=== PATIENT | female | born 1990 | race American Indian/Alaskan Native ===

== ENCOUNTER 2020-12-04 16:47 | Emergency (ER) | payer BC ==
[2020-12-04 17:07] VITALS: BP 123/85
--- NOTE | 2020-12-04 17:47 | Emergency Department Report ---
ED Medical Clearance HPI - General Chief complaint: Medical Clearance Stated complaint: SEEKING PRESCRIPTION FOR PAROXETINE Time Seen by Provider: 12/04/20 17:43 Source: patient Mode of arrival: Ambulatory - History of Present Illness Initial comments: 30-year-old -[place] female presents to the emergency room reporting she has been out of her paroxetine 12.5 mg for 2 days. Patient states that she takes it for premenstrual syndrome. She reports she tried to get in touch with her psychiatrist they will not refill it did not have any appointments available. Therefore patient decided to come here to get a refill. Patient states that she has a new primary care provider that she is going to have managed her medication appointment is December 27, 2020. Patient reports that she does get a little anxious when she does not have the medication. She denies any headache shortness of breath chest pain any diarrhea. Onset/Timin -: days(s) Home medications: Previous Rx's Medication Instructions Recorded Last Taken Type Paroxetine HCl [Paroxetine ER] 12.5 mg PO QDAY #30 tab.er.24h 12/04/20 Unknown Rx Allergies/Adverse reactions: Allergies Allergy/AdvReac Type Severity Reaction Status Date / Time No Known Allergies Allergy Unverified 12/04/20 17:07 ED Review of Systems ROS: Stated complaint: SEEKING PRESCRIPTION FOR PAROXETINE Other details as noted in HPI Comment: All other systems reviewed and negative ED Past Medical Hx - Past Medical History Previous Medical History?: Yes Additional medical history: Premenstrual disorder - Surgical History Past Surgical History?: No - Medications Home Medications: Home Medications Medication Instructions Recorded Confirmed Last Taken Type Paroxetine HCl [Paroxetine ER] 12.5 mg PO QDAY #30 tab.er.24h 12/04/20 Unknown Rx ED Physical Exam - General Limitations: No Limitations General appearance: alert, in no apparent distress - Head Head exam: Present: atraumatic, normocephalic - Eye Eye exam: Present: normal appearance - Respiratory Respiratory exam: Absent: accessory muscle use - Cardiovascular Cardiovascular Exam: Present: regular rate - Back Exam Back exam: Present: normal inspection, full ROM - Neurological Exam Neurological exam: Present: alert, oriented X3, normal gait - Psychiatric Psychiatric exam: Present: normal affect, normal mood - Skin Skin exam: Present: warm, dry, intact, normal color. Absent: rash ED Course Vital Signs 12/04/20 17:04 Temperature 99.6 F Pulse Rate 93 H Respiratory 18 Rate Blood Pressure 123/85 O2 Sat by Pulse 100 Oximetry ED Medical Decision Making - Medical Decision Making 30-year-old -[place] female presents to the emergency room reporting she has been out of her paroxetine 12.5 mg for 2 days. Patient states that she takes it for premenstrual syndrome. She reports she tried to get in touch with her psychiatrist they will not refill it did not have any appointments available. Therefore patient decided to come here to get a refill. Patient states that she has a new primary care provider that she is going to have managed her medication appointment is December 27, 2020. Patient reports that she does get a little anxious when she does not have the medication. She denies any headache shortness of breath chest pain any diarrhea. Patient denies any suicidal homicidal ideation. Patient has a stable mood. We will refill her paroxetine 12.5 mg for 30 days. I instructed patient to keep her appointment with your primary care provider on December 27, 2020. Patient verbalized understanding ED Disposition Clinical Impression: Medication refill, Premenstrual syndrome Disposition: DC-01 TO HOME OR SELFCARE Is pt being admited?: No Does the pt Need Aspirin: No Condition: Stable Instructions: Premenstrual Syndrome Additional Instructions: Please take your medication as prescribed. Is very important that you follow-up with your primary care provider please keep your appointment scheduled for December 27, 2020. Prescriptions: Paroxetine HCl [Paroxetine ER] 12.5 mg PO QDAY #30 tab.er.24h Referrals: Your, primary care provider [Other] - 3-5 Days Forms: Work/School Release Form(ED)
== END 2020-12-04 18:05 | disposition home or self-care (01) ==
LOC: ED 16:47
DX: N94.3 Premenstrual tension syndrome (principal); Z76.0 Encounter for issue of repeat prescription; Z79.899 Other long term (current) drug therapy
CPT/HCPCS: 99282